=== PATIENT | male | born 1980 | race Caucasian/White ===

== ENCOUNTER 2024-03-31 11:16 | Day surgery (SDC) | payer BC ==
[~2024-03-31 11:16] MED LIST: Midazolam 1 MG/ML 2 ML SDV ONE; Propofol 200 MG/20 ML SDV ONE
[2024-03-31] MEDS ORDERED: Sodium Chloride 0.9% 10 ML Syringe FLUSH PRN (11:30)
[2024-03-31] MEDS: Lactated Ringers 1,000 ML IV SCH (11:41)
== END 2024-03-31 13:14 | disposition home or self-care (01) ==
LOC: LL.SDS 11:16
PROVIDERS: ATTEND Surgery
DX: Z12.11 Encounter for screening for malignant neoplasm of colon (principal); D12.3 Benign neoplasm of transverse colon; R19.5 Other fecal abnormalities; I10 Essential (primary) hypertension; Z79.899 Other long term (current) drug therapy
CPT/HCPCS: J2250; J2704; J7120